=== PATIENT | male | born 1960 | race Caucasian/White ===

== ENCOUNTER 2018-07-28 11:17 | Inpatient (IN) | payer MEDICAID, OTHER ==
[~2018-07-28] VITALS: Ht 182.9 cm; Wt 102.9 kg
[~2018-07-28 11:17] MED LIST: METH40TA3 PO; RIVA20TA PO
[2018-07-28 12:00] LABS: BASOPHILS # (AUTO) 0.07 x10^3/uL (0-0.1); BASOPHILS % (AUTO) 1 % (0-1); EOSINOPHILS # (AUTO) 0.06 x10^3/uL (0-0.4); EOSINOPHILS % (AUTO) 1 % (1-7); LYMPHOCYTES # (AUTO) 1.65 x10^3/uL (1-3.4); LYMPHOCYTES % (AUTO) 31 % (22-44); MD NO; MEAN CORPUSCULAR HEMOGLOBIN 34.6 pg (27.5-34.5); MEAN CORPUSCULAR HGB CONC 32.2 g/dL (33.2-36.2); MEAN CORPUSCULAR VOLUME 107.6 fL (81-97); MEAN PLATELET VOLUME 8.6 fL (7.4-10.4); MONOCYTES # (AUTO) 0.33 x10^3/uL (0.2-0.8); MONOCYTES % (AUTO) 6 % (2-9); NEUTROPHILS # (AUTO) 3.29 x10^3/uL (1.8-6.8); NEUTROPHILS % (AUTO) 61 % (42-75); PLATELET COUNT 141 x10^3/uL (130-400); RED BLOOD COUNT 4.53 x10^6/uL (4.38-5.82); RED CELL DISTRIBUTION WIDTH 13.5 % (9.4-14.8)
[2018-07-28 12:09] LABS: ALBUMIN 3.5 g/dL (3.4-5.0); ANION GAP 9 mmol/L (5-15); CALCIUM 8.4 mg/dL (8.5-10.1); CHLORIDE 104 mmol/L (98-107); CREATININE 0.71 mg/dL (0.7-1.3)
--- NOTE | 2018-07-28 12:17 | NUR ---
PT DIVERTED TO ED FROM [place]
--- NOTE | 2018-07-28 12:17 | NUR ---
PT RESTING IN [facility] WATCHING TV, US COMPLETE, AWAITING LAB RESULTS. CALL LIGHT WITHIN REACH, NO NEEDS AT THIS TIME
[2018-07-28] MEDS ORDERED: HEPARIN 5,000 UNITS/ML, 1ML IV PRN ×2 (12:30→13:30)
[2018-07-28] MEDS ORDERED: HEPARIN 25,000 UNITS/500ML PMX 500 ML IV PRN (12:30)
[2018-07-28] MEDS ORDERED: HEPARIN 5,000 UNITS/ML, 1ML IV ONE ×2 (12:30→13:30)
--- NOTE | 2018-07-28 12:40 | NUR ---
RECEIVED REPORT FROM GABRIEL GONZALEZ. PT RESTING ON [employer]. NADN. IGLESIAS.
--- NOTE | 2018-07-28 12:43 | NUR ---
PT WEIGHED ON ZEROED BEDSCALE FOR HEPARIN GTT.
--- NOTE | 2018-07-28 13:08 | NUR ---
SPOKE W/ LUCILA FROM PHARMACY WHO WAS NOTIFIED OF PT WEIGHT CHANGE AND VERIFICATION OF WHERE PT FALLS ON THE SCALE FOR HEPARIN. PER PHARMACY PT NOW FALLS UNDER 86-100 KG IN WEIGHT W/ HEIGHT DISCUSSED AND WILL BE CHANGED ACCORDINGLY.
[2018-07-28] MEDS ORDERED: HEPARIN 25,000 UNITS/500ML PMX 500 ML ONE (13:17)
[2018-07-28] MEDS ORDERED: HEPARIN 5,000 UNITS/ML, 1ML ONE (13:18)
[2018-07-28] MEDS: HEPARIN 25,000 UNITS/500ML PMX 500 ML IV PRN (13:29)
[2018-07-28] MEDS ORDERED: ACETAMINOPHEN 325 MG TABLET PO PRN (14:00)
--- NOTE | 2018-07-28 14:23 | NUR ---
REPORT GIVEN TO SLOANE, ARMIN RN. ALL QUESTIONS ANSWERED. AWAITING PT TRANSPORT.
[2018-07-28] MEDS ORDERED: LORazepam 1MG TABLET ONE (14:46)
[2018-07-28] MEDS: LORazepam 1MG TABLET PO PRN ×4 (14:47→22:36)
[2018-07-28 14:55] LABS: INTERNATIONAL NORMALIZED RATIO 0.99 (0.93-1.1); PROTHROMBIN TIME 10.4 Seconds (9.6-11.5)
[2018-07-28 15:39] VITALS: BP 165/98
[2018-07-28] MEDS: CHLORDIAZEPOXIDE 10 MG CAPSULE PO SCH ×2 (16:01→21:40)
[2018-07-28] MEDS ORDERED: WARFARIN 7.5 MG TABLET PO-COUM SCH (18:00)
[2018-07-28] MEDS: NICOTINE 14MG/24 HR PATCH.TD24 TD SCH (18:07)
[2018-07-28 19:10] VITALS: BP 199/102
[2018-07-28] MEDS: hydrALAzine 20 MG/ML, 1ML IVPush PRN (19:20)
[2018-07-29] MEDS: LORazepam 1MG TABLET PO PRN ×8 (00:03→22:30)
[2018-07-29 01:54] VITALS: BP 147/99
[2018-07-29 04:25] LABS: MEAN CORPUSCULAR HEMOGLOBIN 35.9 pg (27.5-34.5); MEAN CORPUSCULAR HGB CONC 33.5 g/dL (33.2-36.2); PLATELET COUNT 134 x10^3/uL (130-400); RED BLOOD COUNT 4.61 x10^6/uL (4.38-5.82); RED CELL DISTRIBUTION WIDTH 13.1 % (9.4-14.8)
[2018-07-29 04:32] LABS: ALANINE AMINOTRANSFERASE 40 U/L (12-78); ALBUMIN 3.3 g/dL (3.4-5.0); ANION GAP 7 mmol/L (5-15); CALCIUM 8.5 mg/dL (8.5-10.1); CHLORIDE 103 mmol/L (98-107); CREATININE 0.68 mg/dL (0.7-1.3)
[2018-07-29 04:35] LABS: ALKALINE PHOSPHATASE 94 U/L (45-117); BILIRUBIN,TOTAL 1.2 mg/dL (0.2-1.0); TOTAL PROTEIN 6.9 g/dL (6.4-8.2)
[2018-07-29 04:53] LABS: BASOPHILS # (AUTO) 0.06 x10^3/uL (0-0.1); BASOPHILS % (AUTO) 1 % (0-1); EOSINOPHILS # (AUTO) 0.03 x10^3/uL (0-0.4); EOSINOPHILS % (AUTO) 0 % (1-7); LYMPHOCYTES # (AUTO) 1.57 x10^3/uL (1-3.4); LYMPHOCYTES % (AUTO) 21 % (22-44); MD SCAN; MONOCYTES # (AUTO) 0.44 x10^3/uL (0.2-0.8); MONOCYTES % (AUTO) 6 % (2-9); NEUTROPHILS # (AUTO) 5.22 x10^3/uL (1.8-6.8); NEUTROPHILS % (AUTO) 72 % (42-75)
[2018-07-29 07:10] VITALS: BP 171/109
[2018-07-29] MEDS: hydrALAzine 20 MG/ML, 1ML IVPush PRN ×2 (07:32→19:51)
[2018-07-29] MEDS: CHLORDIAZEPOXIDE 10 MG CAPSULE PO SCH (08:57)
[2018-07-29] MEDS: METHADONE INTENSOL 10 MG/ML ORAL CONC PO SCH (08:57)
[2018-07-29] MEDS: HEPARIN 25,000 UNITS/500ML PMX 500 ML IV PRN (10:22)
[2018-07-29 13:35] VITALS: BP 172/84
[2018-07-29] MEDS: CHLORDIAZEPOXIDE 25 MG CAPSULE PO SCH ×2 (15:30→20:52)
[2018-07-29] MEDS: NICOTINE 14MG/24 HR PATCH.TD24 TD SCH (16:26)
[2018-07-29] MEDS: RIVAROXABAN 15 MG TABLET PO SCH (16:27)
[2018-07-29 19:38] VITALS: BP 165/108
[2018-07-29 20:52] VITALS: BP 162/94
[2018-07-30] MEDS: LORazepam 1MG TABLET PO PRN ×4 (01:11→19:34)
[2018-07-30 01:26] VITALS: BP 137/88
[2018-07-30 04:53] LABS: BASOPHILS # (AUTO) 0.02 x10^3/uL (0-0.1); BASOPHILS % (AUTO) 0 % (0-1); EOSINOPHILS # (AUTO) 0.05 x10^3/uL (0-0.4); EOSINOPHILS % (AUTO) 1 % (1-7); LYMPHOCYTES # (AUTO) 1.51 x10^3/uL (1-3.4); LYMPHOCYTES % (AUTO) 24 % (22-44); MD NO; MEAN CORPUSCULAR HEMOGLOBIN 35.8 pg (27.5-34.5); MEAN CORPUSCULAR HGB CONC 33.8 g/dL (33.2-36.2); MEAN CORPUSCULAR VOLUME 105.9 fL (81-97); MONOCYTES # (AUTO) 0.44 x10^3/uL (0.2-0.8); MONOCYTES % (AUTO) 7 % (2-9); NEUTROPHILS # (AUTO) 4.33 x10^3/uL (1.8-6.8); NEUTROPHILS % (AUTO) 68 % (42-75); PLATELET COUNT 117 x10^3/uL (130-400); RED BLOOD COUNT 4.54 x10^6/uL (4.38-5.82); RED CELL DISTRIBUTION WIDTH 13.3 % (9.4-14.8)
[2018-07-30 05:08] LABS: ALBUMIN 3.4 g/dL (3.4-5.0); ANION GAP 7 mmol/L (5-15); CALCIUM 8.7 mg/dL (8.5-10.1); CHLORIDE 102 mmol/L (98-107)
[2018-07-30 05:14] LABS: ALANINE AMINOTRANSFERASE 34 U/L (12-78); ALKALINE PHOSPHATASE 89 U/L (45-117); BILIRUBIN,TOTAL 1.6 mg/dL (0.2-1.0); CREATININE 0.68 mg/dL (0.7-1.3); TOTAL PROTEIN 7.2 g/dL (6.4-8.2)
[2018-07-30 07:31] VITALS: BP 157/88
[2018-07-30] MEDS: RIVAROXABAN 15 MG TABLET PO SCH ×2 (08:30→15:59)
[2018-07-30] MEDS: CHLORDIAZEPOXIDE 25 MG CAPSULE PO SCH ×3 (08:30→21:30)
[2018-07-30] MEDS: METHADONE INTENSOL 10 MG/ML ORAL CONC PO SCH (08:31)
[2018-07-30 14:02] VITALS: BP 147/99
[2018-07-30] MEDS: NICOTINE 14MG/24 HR PATCH.TD24 TD SCH (15:59)
[2018-07-30 20:13] VITALS: BP 139/91
[2018-07-31 00:30] VITALS: BP 140/91
[2018-07-31] MEDS: LORazepam 1MG TABLET PO PRN (00:49)
[2018-07-31 05:05] LABS: BASOPHILS # (AUTO) 0.06 x10^3/uL (0-0.1); BASOPHILS % (AUTO) 1 % (0-1); EOSINOPHILS # (AUTO) 0.17 x10^3/uL (0-0.4); EOSINOPHILS % (AUTO) 2 % (1-7); LYMPHOCYTES # (AUTO) 1.85 x10^3/uL (1-3.4); LYMPHOCYTES % (AUTO) 26 % (22-44); MD NO; MEAN CORPUSCULAR HEMOGLOBIN 36.3 pg (27.5-34.5); MEAN CORPUSCULAR HGB CONC 33.9 g/dL (33.2-36.2); MEAN PLATELET VOLUME 9.3 fL (7.4-10.4); MONOCYTES # (AUTO) 0.53 x10^3/uL (0.2-0.8); MONOCYTES % (AUTO) 7 % (2-9); NEUTROPHILS # (AUTO) 4.52 x10^3/uL (1.8-6.8); NEUTROPHILS % (AUTO) 63 % (42-75); PLATELET COUNT 113 x10^3/uL (130-400); RED BLOOD COUNT 4.42 x10^6/uL (4.38-5.82); RED CELL DISTRIBUTION WIDTH 13.1 % (9.4-14.8)
[2018-07-31 05:14] LABS: ALANINE AMINOTRANSFERASE 30 U/L (12-78); ALBUMIN 3.2 g/dL (3.4-5.0); ANION GAP 8 mmol/L (5-15); CALCIUM 8.3 mg/dL (8.5-10.1); CHLORIDE 103 mmol/L (98-107); CREATININE 0.83 mg/dL (0.7-1.3)
[2018-07-31 05:16] LABS: ALKALINE PHOSPHATASE 88 U/L (45-117); TOTAL PROTEIN 6.9 g/dL (6.4-8.2)
[2018-07-31 07:51] VITALS: BP 138/91
[2018-07-31] MEDS: CHLORDIAZEPOXIDE 25 MG CAPSULE PO SCH (08:10)
[2018-07-31] MEDS: RIVAROXABAN 15 MG TABLET PO SCH (08:10)
[2018-07-31] MEDS ORDERED: RIVA20TA PO (08:18)
[2018-07-31] MEDS ORDERED: CHLO25CA9 PO (08:18)
[2018-07-31] MEDS ORDERED: RIVA15TA PO (08:18)
[2018-07-31] MEDS: METHADONE INTENSOL 10 MG/ML ORAL CONC PO SCH (09:22)
== END 2018-07-31 10:30 | disposition home or self-care (01) | DRG 300 ==
LOC: ED 12:22 → EDIP 13:56 → 3NW 14:51 → DCLOUNGE 07-31 10:15
PROVIDERS: ADMIT Family Medicine; ATTEND Family Medicine
DX: I82.432 Acute embolism and thrombosis of left popliteal vein (principal); F10.239 Alcohol dependence with withdrawal, unspecified; I82.442 Acute embolism and thrombosis of left tibial vein; M79.89 Other specified soft tissue disorders; G89.29 Other chronic pain; I10 Essential (primary) hypertension; J42 Unspecified chronic bronchitis; F17.200 Nicotine dependence, unspecified, uncomplicated; Z89.519 Acquired absence of unspecified leg below knee; Z79.01 Long term (current) use of anticoagulants; Y90.9 Presence of alcohol in blood, level not specified
CPT/HCPCS: 36415; 80048; 80053; 82040; 82607; 83880; 85025; 85520; 85610; 96374; G0378; J1644; J0360